=== PATIENT | male | born 1970 | race Caucasian/White ===

== ENCOUNTER 2019-04-08 21:18 | Emergency (ER) | payer SELFPAY ==
[2019-04-08] MEDS ORDERED: Dexamethasone 10 MG/ML SDV IM ONE (22:52)
[2019-04-08] MEDS ORDERED: Acetaminophen 325 MG Tab PO ONE (22:53)
[2019-04-08] MEDS ORDERED: Ketorolac 60 MG/2 ML SDV IM ONE (22:55)
--- NOTE | 2019-04-08 22:55 | EDM.PDOC ---
ED HPI GENERAL MEDICAL PROBLEM - General Chief Complaint: Respiratory Problem Stated Complaint: FLU SYMPTOMS Time Seen by Provider: 04/08/19 21:40 Source of Information: Reports: Patient - History of Present Illness INITIAL COMMENTS - FREE TEXT/NARRATIVE: Pt with no past respiratory medical history presents with 48 hours of Cough, sinus pressure and sore throat. Associated symptoms include body aches and subjective fever. generalized Pain Score (Numeric/FACES): 8 - Related Data Allergies Allergy/AdvReac Type Severity Reaction Status Date / Time No Known Allergies Allergy Verified 04/08/19 21:26 Home Meds: Home Meds . [No Known Home Meds] 04/08/19 [History] Past Medical History HEENT History: Reports: None Cardiovascular History: Reports: None Respiratory History: Reports: None Gastrointestinal History: Reports: None Genitourinary History: Reports: None Musculoskeletal History: Reports: None Neurological History: Reports: None Psychiatric History: Reports: None Endocrine/Metabolic History: Reports: None Insulin Pump Model and Mass Spectroscopist: None Hematologic History: Reports: None Immunologic History: Reports: None Oncologic (Cancer) History: Reports: None Dermatologic History: Reports: None - Infectious Disease History Infectious Disease History: Reports: None - Past Surgical History Head Surgeries/Procedures: Reports: None Musculoskeletal Surgical History: Reports: Other (See Below) Other Musculoskeletal Surgeries/Procedures:: Knee Surgery Social & Family History - Family History Family Medical History: Noncontributory - Tobacco Use Smoking Status *Q: Never Smoker - Caffeine Use Caffeine Use: Reports: Coffee - Recreational Drug Use Recreational Drug Use: No ED ROS GENERAL - Review of Systems Review Of Systems: See Below Constitutional: Reports: Fever, Chills, Malaise HEENT: Reports: Throat Pain Respiratory: Reports: Cough. Denies: Shortness of Breath, Wheezing Cardiovascular: Reports: No Symptoms GI/Abdominal: Reports: No Symptoms Musculoskeletal: Reports: No Symptoms Neurological: Reports: Headache (mild generalized), Other (Full rom of neck, no clinical signs of meningits) ED EXAM, GENERAL - Physical Exam Exam: See Below Exam Limited By: No Limitations General Appearance: Alert, WD/WN, No Apparent Distress Nose: Normal Inspection Throat/Mouth: Normal Inspection Head: Atraumatic, Normocephalic Neck: Full Range of Motion, Other (No clinical sign of meningitis) Respiratory/Chest: No Respiratory Distress, Lungs Clear, Normal Breath Sounds Cardiovascular: Normal Peripheral Pulses, Regular Rate, Rhythm (tachycardia), No Edema, No Murmur GI/Abdominal: Soft, Non-Tender, No Distention Extremities: Normal Inspection Neurological: Alert, Oriented, Normal Cognition, Other (Ambulatory) Skin Exam: Warm, Dry, Intact Course - Vital Signs Last Recorded V/S: Last Vital Signs Temp 98.9 F 04/08/19 23:05 Pulse 109 H 04/08/19 23:05 Resp 18 04/08/19 23:05 BP 128/84 04/08/19 23:05 Pulse Ox 94 L 04/08/19 23:05 - Orders/Labs/Meds Orders: Active Orders 24 hr Category Date Time Status CULTURE STREP A CONFIRMATION [] Stat Lab 04/08/19 21:32 Results STREP SCRN A RAPID W CULT CONF [] Stat Lab 04/08/19 21:32 Results Meds: Medications Discontinued Medications Generic Name Dose Route Start Last Admin Trade Name Lemuel PRN Reason Stop Dose Admin Acetaminophen 1,000 mg 04/08/19 22:53 Tylenol PO 04/08/19 22:54 NOW ONE Dexamethasone 12 mg 04/08/19 22:52 04/08/19 23:04 Dexamethasone IM 04/08/19 22:53 12 mg ONETIME ONE Administration Ketorolac Tromethamine 60 mg 04/08/19 22:55 04/08/19 23:03 Toradol IM 04/08/19 22:56 60 mg ONETIME ONE Administration - Re-Assessments/Exams Free Text/Narrative Re-Assessment/Exam: 04/08/19 23:50 VS shows mild fever and tachycardia which are improved with ED therapy. Pt in no distress and PE benign. main symptom is cough. Azithromycin prescribed on instymeds. Pt feels improved and is comfortable with discharge. Strict return precautions discussed should symptoms worsen or any concerns arise. 04/08/19 23:52 Departure - Departure Time of Disposition: 23:52 Disposition: Home, Self-Care 01 Condition: Good Clinical Impression: URI (upper respiratory infection) - Discharge Information *PRESCRIPTION DRUG MONITORING PROGRAM REVIEWED*: Not Applicable *COPY OF PRESCRIPTION DRUG MONITORING REPORT IN PATIENT SUSAN: Not Applicable Instructions: Upper Respiratory Infection, Adult, [id number] Referrals: PCP,None [Primary Care Provider] - Forms: ED Department Discharge Sepsis Event Note - Evaluation Sepsis Screening Result: No Definite Risk - Focused Exam Vital Signs: Vital Signs Temp Pulse Resp BP Pulse Ox 04/08/19 23:05 98.9 F 109 H 18 128/84 94 L 04/08/19 21:27 100.3 F 122 H 18 154/86 H 95 Date Exam was Performed: 04/08/19 Time Exam was Performed: 23:50
--- NOTE | 2019-04-08 23:10 | CR ---
INDICATION: Cough and fever for 1 day TECHNIQUE: Chest radiograph 2 views COMPARISON: None FINDINGS: Mediastinum: The mediastinum is normal in appearance. The heart silhouette is normal in size and morphology. Lung: Both lungs are unremarkable in appearance. No sign of pleural effusion seen. No pneumothorax is identified. Bone and Soft tissue: Unremarkable for age. IMPRESSION: 1. No acute cardiopulmonary disease is seen. Dictated by: Gael Rivera MD @ 04/08/2019 23:09:04 (Electronically Signed)
== END 2019-04-09 00:24 | disposition home or self-care (01) ==
LOC: MW.ED 21:18
DX: J06.9 Acute upper respiratory infection, unspecified (principal)
CPT/HCPCS: 71046; 87081; 87804; 87880; 96372; 99283; J1100; J1885; 99282

== ENCOUNTER 2019-08-27 23:24 | Emergency (ER) | payer SELFPAY ==
[2019-08-27] MEDS ORDERED: Acetaminophen 500 MG Tab PO ONE (23:27)
[2019-08-27] MEDS ORDERED: Diphtheria,Pertussis(Acell),Tetanus Vaccine 0.5 ML Syringe IM ONE (23:27)
[2019-08-27] MEDS ORDERED: Sodium Chloride 0.9% 10 ML Syringe FLUSH PRN (23:27)
[2019-08-27] MEDS ORDERED: fentaNYL 50 MCG/ML SDV IVPUSH ONE (23:27)
[2019-08-27] MEDS ORDERED: Ketorolac 15 MG/ML SDV IVPUSH ONE (23:27)
[2019-08-27] MEDS ORDERED: Sodium Chloride 0.9% 2.5 ML Syringe FLUSH PRN (23:27)
[2019-08-27] MEDS ORDERED: Lactated Ringers 1,000 ML IV ONE (23:27)
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
[2019-08-27 23:49] LABS: BLOOD UREA NITROGEN,BUN 15 mg/dL (7.0-18.0); CARBON DIOXIDE,CO2 22.4 mmol/L (21.0-32.0); CHLORIDE,CL 104 mmol/L (98-107); GLUCOSE RANDOM 116 mg/dL (74-106); POTASSIUM,K 3.8 mmol/L (3.5-5.1); SODIUM,NA 142 mmol/L (136-148)
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
[2019-08-28] MEDS ORDERED: fentaNYL 50 MCG/ML SDV IVPUSH ONE (00:26)
[2019-08-28] MEDS ORDERED: fentaNYL 50 MCG/ML SDV ONE (00:28)
[2019-08-28] MEDS ORDERED: Piperacillin/Tazobactam 4.5 GM in Sodium Chloride 0.9% 100 ML IV ONE (00:36)
[2019-08-28] MEDS ORDERED: Morphine 4 MG/ML Syringe IVPUSH ONE (01:51)
== END 2019-08-28 03:50 ==
LOC: MW.ED 23:24
DX: S41.112A Laceration without foreign body of left upper arm, initial encounter (principal); S01.83XA Puncture wound without foreign body of other part of head, initial encounter; S11.93XA Puncture wound without foreign body of unspecified part of neck, initial encounter; Z23 Encounter for immunization; W39.XXXA Discharge of firework, initial encounter
CPT/HCPCS: 36415; 73080; 80048; 80307; 85025; 90471; 90715; 96365; 96375; 96376; 99285; A9270; J1885; J2270; J2543; J3010; J7050; J7120; 99284

== ENCOUNTER 2023-05-20 16:02 | Emergency (ER) | payer SELFPAY ==
[2023-05-20] MEDS: Lidocaine 1% 5 ML VIAL INJECT ONE (17:06)
== END 2023-05-20 18:06 | disposition home or self-care (01) ==
LOC: MW.ED 16:02
DX: S01.511A Laceration without foreign body of lip, initial encounter (principal); R03.0 Elevated blood-pressure reading, without diagnosis of hypertension; Z75.8 Other problems related to medical facilities and other health care; W22.8XXA Striking against or struck by other objects, initial encounter; Y93.89 Activity, other specified; Y99.0 Civilian activity done for income or pay
CPT/HCPCS: 12013; 99283; J3490

== ENCOUNTER 2024-02-29 11:29 | Emergency (ER) | payer SELFPAY ==
[2024-02-29] MEDS ORDERED: Sodium Chloride 0.9% 10 ML Syringe FLUSH PRN (12:11)
[2024-02-29] MEDS ORDERED: Sodium Chloride 0.9% 2.5 ML Syringe FLUSH PRN (12:11)
[2024-02-29] MEDS ORDERED: Sodium Chloride 0.9% 20 ML SDV IV PRN (12:11)
[2024-02-29 12:27] LABS: BASOPHILS ABSOLUTE AUTO 0.04 K/uL (0.00-0.20); BASOPHILS PERCENT AUTO 0.6 % (0.0-1.0); EOSINOPHILS ABSOLUTE AUTO 0.29 K/uL (0.00-0.45); EOSINOPHILS PERCENT AUTO 4.3 % (0.0-6.0); HEMATOCRIT 47.3 % (42.0-52.0); HEMOGLOBIN 16.8 g/dL (14.0-18.0); IMMATURE GRAN ABSOLUTE AUTO 0.03 K/uL (0.00-0.05); IMMATURE GRAN PERCENT AUTO 0.4 % (0.0-0.4); LYMPHOCYTES PERCENT AUTO 26.5 % (24.0-44.0); MEAN CORPUSCULAR HEMOGLOBIN 29.7 pg (28.0-32.0); MEAN CORPUSCULAR HGB CONC 35.5 g/dL (32.0-36.0); MEAN CORPUSCULAR VOLUME 83.7 fL (83.0-99.0); MEAN PLATELET VOLUME 10.3 fL (9.4-12.4); MONOCYTES ABSOLUTE AUTO 0.55 K/uL (0.00-0.80); MONOCYTES PERCENT AUTO 8.1 % (0.0-8.0); NEUTROPHILS ABSOLUTE AUTO 4.09 K/uL (1.80-7.70); NEUTROPHILS PERCENT AUTO 60.1 % (41.0-71.0); PLATELET COUNT,PLT 192 K/uL (150-400); RED BLOOD CELL COUNT 5.65 M/uL (4.52-5.90)
[2024-02-29 12:54] LABS: A/G RATIO 1.1 (0.9-1.6); ALBUMIN 3.6 g/dL (3.4-5.0); BILIRUBIN TOTAL 0.5 mg/dL (0.2-1.0); CARBON DIOXIDE,CO2 29.7 mmol/L (21.0-32.0); CREATININE 1.2 mg/dL (0.8-1.3); EST CRCL DRUG DOSING (CG) 76.69 mL/min; PROTEIN TOTAL,TP 6.8 g/dL (6.4-8.2)
[2024-02-29] MEDS ORDERED: Heparin Sodium 5,000 Units/ML Vial IVPUSH ONE (13:16)
[2024-02-29] MEDS ORDERED: Metoprolol Tartrate 5 MG in Sodium Chloride 0.9% 50 ML IV ONE (13:18)
[2024-02-29] MEDS: Aspirin 81 MG Tab.Chew PO ONE (13:33)
[2024-02-29] MEDS: Metoprolol Tartrate 5 MG/5 ML SDV IVPUSH ONE (13:34)
[2024-02-29] MEDS: Nitroglycerin 2% Oint 1 GM UD Packet TOP PRN (13:34)
[2024-02-29] MEDS: Heparin Sodium/0.45% NaCl 25,000 UNITS/250 ML BAG IV SCH (13:35)
[2024-02-29] MEDS: Heparin Sodium 5,000 Units/ML Vial IVPUSH ONE (13:35)
[2024-02-29] MEDS: Enalaprilat 1.25 MG/ML SDV IVPUSH ONE (14:38)
== END 2024-02-29 15:20 ==
LOC: MW.ED 11:29
DX: I21.4 Non-ST elevation (NSTEMI) myocardial infarction (principal); Z79.899 Other long term (current) drug therapy
CPT/HCPCS: 36415; 80053; 84484; 85025; 85730; 93005; 96365; 96366; 96375; 99285; A9270; J1644; J3490